=== PATIENT | male | born 1970 | race Caucasian/White ===

== ENCOUNTER 2016-11-19 14:52 | Day surgery (SDC) | payer BC, SELFPAY ==
--- NOTE | ~2016-11-19 | OP ---
Record Of Operation [facility] [address] [place]. [address] NAME: SONI MOSS : 72 STATUS : [facility]#: [id number] AGE: 46 ADM/REG DATE : 11/19/16 MR#: [id number] REPORT SERV DATE: 11/19/16 DICTATED BY: CORDELIA BARRETT DATE: 11/19/16 REPORT STATUS : Draft TRANSCRIBED BY: MODL DATE: 11/19/16 DATE OF PROCEDURE: 11/19/2016 ATTENDING PHYSICIAN: Cordelia Barrett MD. TYPE OF OPERATION: Right ureteral shockwave lithotripsy. PREOPERATIVE DIAGNOSIS: Right ureteral stone. POSTOPERATIVE DIAGNOSIS: Right ureteral stone. INDICATIONS: Mr. Moss is a 46-year-old male, with a symptomatic 5 mm stone which has not passed. It is in the right ureter and radiopaque on KUB. He is here for shock wave lithotripsy. ANESTHESIA: MAC. COMPLICATIONS: None. IMPLANTS: None. SPECIMENS: None. NARRATIVE: The patient was brought to the lithotripsy suite and general sedation was performed. He was given Levaquin for preoperative antibiotics. The stone was localized with fluoroscopy in the AP and lateral planes. The working Lithotripter head was placed in an anterior position. The shocks were then begun. They were gradually increased and to final rate of 90. The power was gradually increased to a rate of 6. A total 3000 shocks were administered. Periodic fluoroscopy was performed to identify the stone. The total fluoroscopy time was less than 2 minutes. There was good response of the stone to the treatment. He was awoken from his sedation and transferred to the recovery room in stable condition. There were no complications. I will see him back in two weeks with a KUB. RACIEL/KARLA Cordelia Barrett MD / [id number] CC: MD Carol Hernandez M.D.
[~2016-11-19 14:52] MED LIST: ASAB PO; CURCUMIN PO; DEPLIN-ALGAL O1 EAC1 PO; DIAM250B PO; FISH-EPA1000 MG PO; IMDUR30 PO; LEXAPRO5 MG PO; LIPITOR40 PO; NAC600 MG PO; NORV25 PO; PROLENSA1.6 ML OPH; TRAVATAN Z OPH
[2016-11-19 16:07] LABS: PFA (COL/EPI) 80 SEC (72-180)
== END 2016-11-19 19:53 | disposition home or self-care (01) ==
LOC: SDC 14:52
PROVIDERS: Urology
DX: N20.1 Calculus of ureter (principal); G47.33 Obstructive sleep apnea (adult) (pediatric); I25.10 Atherosclerotic heart disease of native coronary artery without angina pectoris
CPT/HCPCS: 50590; 74000; 85576; 93005; J3010